=== PATIENT | female | born 2005 | race Two or more races ===

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

== ENCOUNTER 2025-02-12 16:56 | Emergency (ER) | payer OTHER, SELFPAY ==
--- NOTE | ~2025-02-12 | XR_ITS ---
CLINICAL HISTORY: SOB, cough 2 view chest x-ray Comparison: CR/SR - XR CHEST 2 VIEWS - 02/26/24 16:19 EST Findings: Bronchial wall thickening. No consolidation, pleural effusion or pneumothorax. Heart size is normal. No acute fracture. IMPRESSION: 1. Mild central bronchial wall thickening, which can be seen with asthma, reactive airways process or viral illness. 2. No superimposed infiltrate or consolidation. This document has been electronically signed by: Sharlene Dorman DO on 02/12/2025 17:40:08
[2025-02-12 17:01] VITALS: BP 142/71; PULSE 126; RESP 20; TEMP 37.2; O2SAT 99; BMI 30.6
--- NOTE | 2025-02-12 17:02 | ED.URI ---
HPI - URI/Sore Throat General Chief Complaint: Upper Respiratory Symptoms Stated Complaint: BAD ASTHMA, SINUS AND EAR HURTS, CONGESTED Time Seen by Provider: 02/12/25 19:05 Source: patient Limitations: no limitations History of Present Illness ED Provider: Kaylene López PA-C HPI Narrative: 20-year-old female with a history of asthma presents with cough cold symptoms x3 days. Associated dry repetitive bronchospasm type cough, wheezing and fevers. Nasal congestion noted as well. Denies known sick contacts with similar symptoms. Related Data Home Medications ?Medication ?Instructions ?Recorded ?Confirmed albuterol 2 puff inhalation Q4-6H PRN 09/15/20 09/15/20 Wheezing fluticasone propionate 50 2 spray intranasal DAILY 09/15/20 09/15/20 mcg/actuation nasal spray,suspension (Flonase Allergy Relief) Previous Rx's ?Medication ?Instructions ?Recorded albuterol sulfate 90 mcg/actuation 2 puff inhalation Q4-6H PRN 09/13/21 aerosol inhaler shortness of breath or wheezing #8.5 grams benzonatate 100 mg capsule 100 mg PO TID PRN cough #14 caps 09/13/21 prednisone 50 mg tablet 50 mg PO DAILY #5 tabs 09/13/21 azithromycin 500 mg tablet 500 mg PO DAILY #7 tabs 04/29/22 (Zithromax) azithromycin 500 mg tablet 500 mg PO DAILY 7 days #7 tabs 04/29/22 (Zithromax) albuterol sulfate 2.5 mg/3 mL 2.5 mg (3 mL) inhalation Q6H #75 mL 07/04/22 (0.083 %) solution for nebulization albuterol sulfate 90 mcg/actuation 2 inh inhalation Q4-6H PRN 07/04/22 breath activated powder inhaler shortness of breath or wheezing #1 ea prednisone 20 mg tablet 40 mg (2 x 20 mg) PO DAILY 5 days 07/04/22 #10 tabs cephalexin 500 mg capsule 500 mg PO Q6H 7 days #28 caps 09/04/22 oxymetazoline 0.05 % nasal spray 2 spray intranasal Q12H PRN nasal 09/28/22 congestion 3 days #15 mL naproxen 500 mg tablet 500 mg PO BID #14 tabs 02/21/23 naproxen 500 mg tablet 500 mg PO BID #14 tabs 03/21/24 benzocaine 15 mg-menthol 2.6 mg 1 michael mucous membrane Q2-4H PRN 02/26/24 lozenges (Cepacol Sore Throat sore throat #16 ea (benzocaine-menthol)) benzonatate 100 mg capsule 100 mg PO BID PRN cough #20 caps 02/26/24 prednisone 20 mg tablet 40 mg (2 x 20 mg) PO DAILY 4 days 02/26/24 #8 tabs albuterol sulfate 2.5 mg/3 mL 2.5 mg (3 mL) inhalation Q4-6H PRN 02/12/25 (0.083 %) solution for nebulization shortness of breath or wheezing #75 mL azithromycin 250 mg tablet 250 mg PO DAILY 4 days #4 tabs 02/12/25 cefuroxime axetil 500 mg tablet 500 mg PO Q12H #19 tabs 02/12/25 prednisone 20 mg tablet 40 mg (2 x 20 mg) PO DAILY #8 tabs 02/12/25 Allergies Allergy/AdvReac Type Severity Reaction Status Date / Time amoxicillin (Amoxicillin) Allergy Unknown RASH Verified 02/12/25 17:04 Review of Systems Review of Systems: Yes all other systems are reviewed and are negative Constitutional: Constitutional: Reports fatigue, Reports fever(s) and Reports malaise ENT: Reports nasal congestion Cardiovascular: Cardiovascular: Denies chest pain and Reports dyspnea Respiratory: Respiratory: Reports cough, Reports dyspnea and Reports wheezing Endocrine: Endocrine: Reports fatigue Allergic/Immunologic: Allergic/Immunologic: Reports wheezing PMFSH Past Medical History Attestation statement: The following information was validated with the patient. Medical History Panic attacks Asthma No known health problems Social History Social History Alcohol intake: never Advance Directives: No Advance Directives Information Provided: Yes Physical Exam Vital Signs: Vital Signs: Last Vital Signs Temp 99.6 F 02/12/25 18:40 Pulse 121 H 02/12/25 18:40 Resp 18 02/12/25 18:40 BP 125/78 02/12/25 18:40 Pulse Ox 96 02/12/25 18:40 O2 Del Method Room Air 02/12/25 18:40 BMI result Body Mass Index 30.6 Const: Other: Alert Orientation/consciousness: patient oriented x3 HEENT: Other: Nasal congestion Resp: Other: No wheezing, active bronchospasm cough, no tachypnea Cardio: Other: Normal peripheral perfusion Skin: Other: Warm dry no rash Neuro: General: patient oriented x3, gait normal, no focal motor deficits and CN's II-XI intact bilaterally Psych: Other: Calm cooperative Course Course Course Narrative: This is an RME: Additional HPI, ROS, PE not included below will be deferred to primary provider. RME assessment and note performed by: Elsie Low PA-C This is a 78, with a hx of asthma, who presents to the ER with complaints of congestion, headache, productive cough. Reports post tussive vomiting. Used inhaler prior to her arrival. Actively coughing in triage. Report sick contacts at work. Plan: Labs, EKG, chest x-ray, further ER evaluation needed. Medical Decision Making Medical Decision Making [facility] Narrative: 20-year-old female with a history of asthma presents with cough cold symptoms x3 days. Associated dry repetitive bronchospasm type cough, wheezing and fevers. Nasal congestion noted as well. Denies known sick contacts with similar symptoms. Problem: Asthma History: Per patient I have considered the following differential diagnoses: Asthma exacerbation, viral syndrome, bronchitis, pneumonia Plan: Screening labs including viral panel and chest x-ray were ordered from triage, the patient has evidence of bronchitis on chest x-ray no pneumonia, she does use marijuana, we will treat with the antibiotics as well. She needs steroid to I have independently reviewed the following tests: Labs: Slight leukocytosis, not anemic, no electrolyte abnormality, viral panel negative Chest x-ray:Findings: Bronchial wall thickening. No consolidation, pleural effusion or pneumothorax. Heart size is normal. No acute fracture. IMPRESSION: 1. Mild central bronchial wall thickening, which can be seen with asthma, reactive airways process or viral illness. 2. No superimposed infiltrate or consolidation. Differential Diagnosis Differential Diagnoses: The differential diagnosis associated with the presentation includes See medical decision-making Admission/Observation Consideration of admission/observation: Escalation of care including admission/observation considered Not applicable Lab Data [facility] Lab Attestation statement: I reviewed the patient's lab results. 02/12/25 17:13 02/12/25 17:13 Labs: Lab Results 02/12/25 Range/Units 17:13 WBC 11.1 H (4.8-10.8) X10*3/uL RBC 4.49 (4.20-5.50) X10*6/uL Hgb 13.2 (12.0-16.0) g/dl Hct 39.1 (37.0-47.0) % MCV 87.1 (80.0-98.0) fL MCH 29.4 (27.0-33.0) pg MCHC 33.8 (31.0-35.0) g/dl RDW 13.4 (11.0-16.0) % Plt Count 206 (160-400) X10*3/uL MPV 10.7 (9.4-12.3) fL Immature Gran % (Auto) 0.3 (0.0-0.4) % Neut % (Auto) 72.0 (45-73) % Lymph % (Auto) 13.4 L (20-40) % Callahan % (Auto) 11.5 H (2-11) % Eos % (Auto) 2.5 (0-4) % Baso % (Auto) 0.3 (0-2) % Lymph # (Auto) 1.5 (1.2-4.9) X10*3/uL Callahan # (Auto) 1.3 H (0.1-1.2) X10*3/uL Eos # (Auto) 0.3 (0.0-0.4) X10*3/uL Baso # (Auto) 0.0 (0.0-0.2) X10*3/uL Abs Immat Gran (auto) 0.03 (0.00-0.03) X10*3/uL Absolute Neuts (auto) 8.0 (2.0-8.3) x10*3/uL Absolute Nucleated RBC 0.000 (0.0-0.012) X10*3/uL Nucleated RBC % (auto) 0.0 (0.0-0.2) /100WBC Sodium 142 (135-145) mmol/L Potassium 3.6 (3.3-5.1) mmol/L Chloride 110 H (96-108) mmol/L Carbon Dioxide 22 (22-29) mmol/L Anion Gap 14 (12-20) BUN 15 (9-16) mg/dL Creatinine 0.65 (0.5-1.4) mg/dL Estim Creat Clear Calc 126.6 Estimated GFR > 60 Random Glucose 92 (60-115) mg/dL Calcium 9.3 D (8.4-10.2) mg/dL Total Bilirubin 0.5 (0.0-1.0) mg/dL Direct Bilirubin 0.2 (0.0-0.5) mg/dL AST 33 H (5-31) U/L ALT 36 H (0-31) U/L Alkaline Phosphatase 78 (39-117) U/L Troponin I High Sens < 2.7 (<3.5-17.0) ng/L Total Protein 7.6 (6.5-8.0) g/dL Albumin 4.6 (3.5-5.0) g/dL Beta HCG, Quant < 2 mIU/mL COVID-19 (ALESHIA) Negative (Negative) COVID-19 Clin Com See Note Influenza Type A (JAC) Negative (Negative) Influenza Type B (JAC) Negative (Negative) Influenza A & B Note See Note Radiology Impression Discussion of test interpretation with radiology: I have reviewed the radiologist's reading. Discharge Plan Discharge Clinical Impression: Bronchitis Patient Disposition: Home, Self-Care Instructions: Acute Bronchitis (ED) Additional Instructions: You were found to have bronchitis on your chest x-ray. The viral panel was negative you had no additional lab abnormalities. See home care instructions. Use your albuterol updraft as directed. Take the steroid as directed. Take the azithromycin as directed. Take the cefuroxime as directed. Complete the course of both antibiotics. Follow up with your primary care as needed. Prescriptions: New azithromycin 250 mg tablet 250 mg PO DAILY 4 Days Qty: 4 0RF Rx Instructions: start on day 2 of therapy cefuroxime axetil 500 mg tablet 500 mg PO Q12H Qty: 19 0RF prednisone 20 mg tablet 40 mg PO DAILY Qty: 8 0RF albuterol sulfate 2.5 mg /3 mL (0.083 %) solution for nebulization 2.5 mg inhalation Q4-6H PRN (Reason: shortness of breath or wheezing) Qty: 75 0RF No Action fluticasone propionate [Flonase Allergy Relief] 50 mcg/actuation [place],Suspension 2 spray INTRANASAL DAILY albuterol 2 puff inhalation Q4-6H PRN (Reason: Wheezing) albuterol sulfate 2.5 mg /3 mL (0.083 %) solution for nebulization 2.5 mg inhalation Q6H Qty: 75 0RF albuterol sulfate 90 mcg/actuation aerosol powdr breath activated 2 inh inhalation Q4-6H PRN (Reason: shortness of breath or wheezing) Qty: 1 0RF prednisone 20 mg tablet 40 mg PO DAILY 5 Days Qty: 10 0RF prednisone 50 mg tablet 50 mg PO DAILY Qty: 5 0RF benzonatate 100 mg capsule 100 mg PO TID PRN (Reason: cough) Qty: 14 0RF albuterol sulfate 90 mcg/actuation HFA aerosol inhaler 2 puff inhalation Q4-6H PRN (Reason: shortness of breath or wheezing) Qty: 8.5 0RF azithromycin [Zithromax] 500 mg tablet 500 mg PO DAILY 7 Days Qty: 7 0RF azithromycin [Zithromax] 500 mg tablet 500 mg PO DAILY Qty: 7 0RF Rx Instructions: The 1st dose was given in the ED on 04/29/2022 start your medicine on 04/30/2022. oxymetazoline 0.05 % spray,non-aerosol 2 spray intranasal Q12H PRN (Reason: nasal congestion) 3 Days Qty: 15 0RF naproxen 500 mg tablet 500 mg PO BID Qty: 14 0RF prednisone 20 mg tablet 40 mg PO DAILY 4 Days Qty: 8 0RF benzonatate 100 mg capsule 100 mg PO BID PRN (Reason: cough) Qty: 20 0RF Cepacol Sore Throat (trent-men) 15-2.6 mg lozenge 1 michael mucous membrane Q2-4H PRN (Reason: sore throat) Qty: 16 0RF cephalexin 500 mg capsule 500 mg PO Q6H 7 Days Qty: 28 0RF naproxen 500 mg tablet 500 mg PO BID Qty: 14 0RF Stand Alone Forms: Work/School Release Print Language: Cymraes
--- NOTE | 2025-02-12 17:04 | ECG_ITS ---
Test Reason : tachy Blood Pressure : */* mmHG Vent. Rate : 116 BPM Atrial Rate : 116 BPM P-R Int : 128 ms QRS Dur : 70 ms QT Int : 306 ms P-R-T Axes : 48 24 0 degrees QTcB Int : 425 ms Sinus tachycardia Otherwise normal ECG When compared with ECG of 15-Sep-2020 23:55, PREVIOUS ECG IS PRESENT Referred By: Elsie Low Electronically Signed By: LAURA TORRES MD
[2025-02-12 17:28] LABS: MANUAL DIFF FLAG NO
[2025-02-12 17:40] LABS: Hematocrit 39.1 % (37.0-47.0); Hemoglobin 13.2 g/dl (12.0-16.0); Imm Gran Abs Auto 0.03 X10*3/uL (0.00-0.03); Imm Gran Pct Auto 0.3 % (0.0-0.4); Lymphocytes Absolute Auto 1.5 X10*3/uL (1.2-4.9); Mean Corpuscular HGB Conc 33.8 g/dl (31.0-35.0); Mean Corpuscular Hemoglobin 29.4 pg (27.0-33.0); Mean Corpuscular Volume 87.1 fL (80.0-98.0); NRBC Abs Auto 0.000 X10*3/uL (0.0-0.012); NRBC Pct Auto 0.0 /100WBC (0.0-0.2); Platelet Count 206 X10*3/uL (160-400); Red Blood Count 4.49 X10*6/uL (4.20-5.50); White Blood Count 11.1 X10*3/uL (4.8-10.8)
[2025-02-12 17:47] LABS: Alanine Aminotransferase 36 U/L (0-31); Albumin Level 4.6 g/dL (3.5-5.0); Alkaline Phosphatase 78 U/L (39-117); Anion Gap 14 (12-20); Aspartate Amino Transferase 33 U/L (5-31); Blood Urea Nitrogen 15 mg/dL (9-16); Calcium 9.3 mg/dL (8.4-10.2); Carbon Dioxide 22 mmol/L (22-29); Chloride 110 mmol/L (96-108); Creatinine Clr Calc Pharmacy 126.6; Estimated Glomerular Filt Rate > 60; Potassium 3.6 mmol/L (3.3-5.1); Sodium 142 mmol/L (135-145); Total Protein 7.6 g/dL (6.5-8.0)
[2025-02-12 17:49] LABS: COVID-19 Test Negative (Negative); IDNOW Serial# 55D5AD1C; IDNOW Serial# 58CA691E; Influenza B2 Negative (Negative)
[2025-02-12 17:57] LABS: Troponin-I High Sensitivity < 2.7 ng/L (<3.5-17.0)
[2025-02-12 18:40] VITALS: BP 125/78; PULSE 121; RESP 18; TEMP 37.6; O2SAT 96
[2025-02-12 19:35] VITALS: BP 116/71; PULSE 110; RESP 18; TEMP 37; O2SAT 96
[2025-02-12 19:41] VITALS: BP 116/71; PULSE 110; RESP 18; TEMP 37; O2SAT 96
== END 2025-02-12 19:42 | disposition home or self-care (01) ==
PROVIDERS: Physician Assistant Medical; Emergency Provider Emergency Medicine; PCP Internal Medicine
DX: J40 Bronchitis, not specified as acute or chronic (principal); F41.0 Panic disorder [episodic paroxysmal anxiety]
CPT/HCPCS: 36415; 71046; 80048; 80076; 84484; 84702; 85025; 87502; 87635; 93005; 99284

== ENCOUNTER → 2025-02-12 17:04 | Outpatient (BNV) | payer OTHER, SELFPAY | PROVIDERS: Emergency Provider Emergency Medicine; PCP Internal Medicine; Visit Provider Internal Medicine Cardiovascular Disease | DX: R00.0 Tachycardia, unspecified (principal) | CPT/HCPCS: 93010 ==

== ENCOUNTER → 2025-02-12 17:06 | Outpatient (BNV) | payer OTHER, SELFPAY | PROVIDERS: PCP Internal Medicine; Visit Provider Radiology Diagnostic Radiology | DX: J98.09 Other diseases of bronchus, not elsewhere classified (principal) | CPT/HCPCS: 71046 ==